=== PATIENT | female | born 1965 | race Caucasian/White ===

== ENCOUNTER → 2019-04-07 13:12 | Outpatient (CLI) | payer OTHER, SELFPAY ==
--- NOTE | ~2019-04-07 | XR_ITS ---
EXAMINATION: XR thoracic spine 3V DATE: 04/07/2019 13:37 INDICATION: Back pain TECHNIQUE: AP, lateral, and swimmer's views of the thoracic spine are obtained. COMPARISON: None. FINDINGS: Bone alignment is normal. There is no fracture. Mild loss of intervertebral disc space heig ht is seen in the midthoracic spine. Lower thoracic dextrocurvature is noted. Small degenerative oste ophytes project from the anterior endplates of multiple vertebral bodies. Calcified subcarinal lymph nodes are consistent with old granulomatous disease. Of note, there is mild to moderate cervical spon dylosis. IMPRESSION: 1. Mild thoracic spondylosis without acute findings. 2. Incidental note of mild to moderate cervical spondylosis. Reviewed, dictated and finalized at location A. ADMINISTRATOR
--- NOTE | ~2019-04-07 | XR_ITS ---
EXAMINATION: XR chest 2V DATE: 04/07/2019 13:37 INDICATION: Dyspnea. TECHNIQUE: Frontal and lateral views of the chest were obtained. COMPARISON: None. FINDINGS: Calcified pulmonary nodules and calcified hilar lymph nodes are consistent with old granulo matous disease. No pleural effusion or pneumothorax. The heart size is normal. IMPRESSION: 1. No acute cardiopulmonary disease. Reviewed, dictated and finalized at location A. NT EVALUATOR
--- NOTE | ~2019-04-07 | XR_ITS ---
EXAMINATION: XR lumbar spine 2-3V DATE: 04/07/2019 13:37 INDICATION: Low back pain TECHNIQUE: Anteroposterior and lateral views of the lumbar spine, and cone-down lateral view of the l umbosacral junction were obtained. COMPARISON: None. FINDINGS: There is no fracture. There are 2 mm of anterolisthesis of L4 on L5 with associated mild lo ss of intervertebral disc space height. Mild loss of intervertebral disc space height is also noted a t L1-2 and L2-3.. Small degenerative osteophytes project from the anterior endplates of multiple vert ebral bodies. The bowel gas pattern is normal. Surgical clips in the right upper quadrant are likely from prior cholecystectomy. IMPRESSION: 1. Mild lumbar spondylosis without acute findings. Reviewed, dictated and finalized at location A. CHEF KITCHEN MANAGER
== END ==
PROVIDERS: PCP Nurse Practitioner Family; Visit Provider Family Medicine
DX: R06.00 Dyspnea, unspecified (principal); M47.894 Other spondylosis, thoracic region; M47.896 Other spondylosis, lumbar region
CPT/HCPCS: 71046; 72072; 72100

== ENCOUNTER 2019-04-16 14:51 | Outpatient (RCR) | payer OTHER, SELFPAY ==
--- NOTE | 2019-04-16 16:34 | PTOPEVAL ---
Thank you for referring this patient to [facility] [place]. Please review, sign, date and return this plan of care LEONCIO. I agree with and certify that the following plan of care is medically necessary. Referring Physician Date Admitting Provider: Attending Provider: Kentrell Santiago, [employer] Referring Provider: *PT Outpatient Evaluation Start: 04/16/19 14:57 Freq: Status: Active Protocol: Document 04/16/19 14:57 LUIS M (Rec: 04/16/19 16:14 LUIS M [id number]) Therapy Assessment Status Assessment Status Assessment Status Evaluation Evaluation Information Problem Diagnosis lumbar and thoracic pain Onset 02/26/19 Subjective Information Pt. reports that she started Query Text:As Reported By Patient/ noting twitching in her legs Family around Feb. She reports that she had undergone lab work without any signficant findings. she reports that she then developed pain across the low back. She states that she was doing massage and chiropractic and began to note some improvement. Shortly after developed coldness and abnormal sensation in her hands and feet. She also notes described twitching in the calf mm. Pt. is uncertain of her goal with therapy at this time. Prior Level of Function Activity Level (Last 3 Months) Occupation secretarial work Hand Dominance Right Activity of Daily Living Ability Independent Indoor/Home Mobility Independent Community Mobility Independent Stairs Ability Independent Functional Cognition (Planning, Shopping Independent , Taking Medications) Cooking Yes Cleaning Yes Laundry Yes Shopping Yes Driving Yes Pain Assessment Pain Scale Pain Scale Used Numeric (1 - 10) Self Report Pain Assessment Bilateral Back Reported Pain Level 0 Current Pain Intensity 0 Lowest Pain Intensity 0 Greatest Pain Intensity 3 Pain Aggravating Factors Prolonged Position,Sitting Pain Behaviors None Pain Relief Interventions Used By Walking Patient Pain Score Pain Score
--- NOTE | 2019-05-01 17:07 | PCPTNOTE ---
05/01/19 - patient called and cancelled therapy visit this date. JTF
--- NOTE | 2019-05-27 17:32 | PCPTNOTE ---
05/27/19- pt not seen since 04/24. pt will be discharged on this date per evaluating therapist.-BART
== END 2019-04-24 08:46 | disposition home or self-care (01) ==
LOC: CHSPT 14:51
PROVIDERS: PCP Nurse Practitioner Family; Visit Provider Nurse Practitioner Family
DX: M54.5 Low back pain (principal); M54.6 Pain in thoracic spine
CPT/HCPCS: 97110; 97161

== ENCOUNTER 2019-07-14 11:35 | Outpatient (CLI) | payer OTHER, SELFPAY ==
[2019-07-14 12:03] LABS: Alanine Aminotransferase 315 U/L (14-59); Albumin Level 4.2 g/dL (3.4-5.0); Alkaline Phosphatase 111 U/L (46-116); Amylase 111 U/L (25-115); Anion Gap 16.3 mmol/L (7-16); Aspartate Amino Transferase 116 U/L (15-37); Bilirubin,Total 0.7 mg/dL (0.00-1.00); Blood Urea Nitrogen 10 mg/dL (7-18); Calcium 9.2 mg/dL (8.5-10.1); Carbon Dioxide 27 mmol/L (21-32); Chloride 101 mmol/L (98-108); Estimated Glomerular Filt Rate > 60; Glucose 97 mg/dL (70-99); Lipase 218 U/L (73-393); Osmolality Calculated 289 mOsm/kg (285-295); Potassium 4.3 mmol/L (3.5-5.1); Sodium 140 mmol/L (136-145); Total Protein 8.1 g/dL (6.4-8.2)
== END 2019-07-14 11:36 | disposition home or self-care (01) ==
LOC: CHSLAB 11:39
PROVIDERS: PCP Family Medicine; Visit Provider Family Medicine
DX: R10.11 Right upper quadrant pain (principal)
CPT/HCPCS: 36415; 80053; 82150; 83690

== ENCOUNTER 2019-07-15 08:17 | Outpatient (CLI) | payer OTHER, SELFPAY ==
--- NOTE | ~2019-07-15 | US_ITS ---
US right upper quadrant DATE: 07/15/2019 08:45 INDICATION: Right upper quadrant abdominal pain. Elevated liver enzymes. TECHNIQUE: Real-time imaging of liver, pancreas, gallbladder areas COMPARISON: None FINDINGS: No hepatic or pancreatic space-occupying mass lesion is evident. There is normal hepatic po rtal venous flow direction. There are multiple shadowing filling defects of the gallbladder consistent with cholelithiasis. The g allbladder wall is thickened, measuring between 3 and 4 mm width. No abnormal pericholecystic fluid c ollection is evident. The sonographic Rios sign is positive. Given the thickening of the gallbladde r wall and positive sonographic Rios's sign. Acute cholecystitis should be considered. If further e valuation is desired, consider radionuclide hepatobiliary scan. The common bile duct measures 3.4 mm diameter, within normal range. IMPRESSION: Cholelithiasis, gallbladder wall thickening and positive sonographic Rios's sign; consi lilia acute cholecystitis. Reviewed, dictated and finalized at Location A. Reviewed, dictated and finalized at location A. IMPRESSION: Cholelithiasis, gallbladder wall thickening and positive sonographi c Rios's sign; consider acute cholecystitis.
== END 2019-07-15 08:18 | disposition home or self-care (01) ==
PROVIDERS: PCP Nurse Practitioner Family; Visit Provider Nurse Practitioner Family
DX: K80.20 Calculus of gallbladder without cholecystitis without obstruction (principal)
CPT/HCPCS: 76705

== ENCOUNTER 2021-01-17 09:16 | Outpatient (CLI) | payer BC, SELFPAY ==
[2021-01-17 10:45] LABS: SARS-CoV-2 RNA PCR Positive (Negative)
== END 2021-01-17 09:17 | disposition home or self-care (01) ==
LOC: CHSLAB 09:21
PROVIDERS: PCP Family Medicine; Visit Provider Family Medicine
DX: U07.1 COVID-19 (principal)
CPT/HCPCS: C9803; U0003; U0005

== ENCOUNTER 2021-01-18 10:31 | Outpatient (CLI) | payer BC, SELFPAY ==
[2021-01-18] MEDS: diphenhydrAMINE HCl CAP 25 MG CAPSULE PO (11:00)
[2021-01-18] MEDS: ACETAMINOPHEN 325 MG TABLET 650 MG PO (11:00)
--- NOTE | 2021-01-18 11:10 | PC.NURSE ---
Pt to room 212 amb. A&Ox3. Oriented to room. Has no complaints. Read and signed [facility] consent. Plan of care explained. Call singletary in reach. Reminded to call with needs.
[2021-01-18 11:33] VITALS: BP 125/68; PULSE 75; RESP 20; O2SAT 98
[2021-01-18] MEDS: FAMOTIDINE 20 MG TABLET PO (11:35)
--- NOTE | 2021-01-18 12:40 | PC.NURSE ---
Pt has no complaints or concerns. Discharged to home amb per self.
== END 2021-01-18 10:32 | disposition home or self-care (01) ==
PROVIDERS: PCP Family Medicine; Visit Provider Family Medicine
DX: U07.1 COVID-19 (principal); I10 Essential (primary) hypertension
CPT/HCPCS: A9270; J7050; M0243; Q0244

== ENCOUNTER 2021-06-05 10:03 | Emergency (ER) | payer BC, SELFPAY ==
--- NOTE | ~2021-06-05 | CT_ITS ---
EXAMINATION: CT abdomen pelvis w con EXAM DATE: 06/05/2021 12:19 INDICATION: Diarrhea, pain, transaminitis . TECHNIQUE: Spiral CT of the abdomen and pelvis was performed following intravenous injection of 100 m L Omnipaque 350. Axial, coronal and sagittal images of the abdomen and pelvis were reviewed. The do se-length product (DLP) for this examination was 191.33 mGy-cm. The exposure was tailored according to patient size (auto mA exposure control), and iterative reconstruction (ASIR) was used as additiona l dose reduction technique. There is no prior study for comparison. FINDINGS: Mild nonspecific retroperitoneal, mesenteric fat stranding with some scattered borderline s ized lymph nodes, one of the larger nodes measuring 9 x 11 mm probably reactive. Could be chronic mes enteric panniculitis but mild pancreatitis not excludable. The liver, spleen, adrenal glands are unr emarkable. There are cholecystectomy clips. Minimal intrahepatic biliary duct dilation likely from p ostcholecystectomy status.Portal and splenic veins are patent. Kidneys enhance symmetrically. There is no hydronephrosis. The uterus is unremarkable. The bladder is unremarkable. There are no findings to suggest appendicitis. The stomach and small bowel are unremarkable. There is colonic fluid, correlate for diarrhea. No free intraperitoneal gas. The heart is normal in siz e. There are no pericardial or pleural effusions. The lung bases are unremarkable. There are no os teoblastic or osteolytic lesions identified. IMPRESSION: 1. Colonic fluid, correlate for gastroenteritis or diarrhea. 2. Mild nonspecific retroperitoneal, mesenteric fat stranding and some borderline sized mesenteric l ymph nodes. Consider chronic mesenteric panniculitis or possibly mild uncomplicated acute pancreatiti s. Reviewed, dictated and finalized at location A. IMPRESSION: 1. Colonic fluid, correlate for gastroenteritis or diarrhea. 2. Mild nonspecific retroperitoneal, mesenteric fat stranding and some borderl ine sized mesenteric lymph nodes. Consider chronic mesenteric panniculitis or p ossibly mild uncomplicated acute pancreatitis.
[2021-06-05 10:09] VITALS: BP 143/63; PULSE 97; RESP 18; TEMP 36.3; O2SAT 100
[2021-06-05 10:41] LABS: Basophils Percent Auto 0.3 % (0.2-1.2); Eosinophils Absolute Auto 0.7 K/mm3 (0-0.3); Hematocrit 43.8 % (37.0-47.0); Immature Granulocyte Absolute 0.03 K/mm3 (0.00-0.031); Immature Granulocyte Percent A 0.5 % (0-0.5); Lymphocytes Absolute Auto 0.95 K/mm3 (0.9-3.2); Lymphocytes Percent Auto 14.5 % (18.3-44.2); Mean Corpuscular Hemoglobin 28.4 pg (26-34); Mean Corpuscular Volume 88.8 fl (80-100); Mean Platelet Volume 10.8 fl (7.4-10.4); Monocytes Absolute Auto 0.4 K/mm3 (0.1-0.6); Monocytes Percent Auto 5.3 % (2.6-8.5); Neutrophils Absolute Auto 4.5 K/mm3 (1.3-6.7); Neutrophils Percent Auto 68.4 % (45.5-73.1); Platelet Count Result 258 k/mm3 (150-375); Red Blood Count 4.93 M/mm3 (4.2-5.4); Red Cell Distribution Width 12.5 % (11.5-14.5); White Blood Count 6.6 K/mm3 (4.5-10.0)
[2021-06-05 10:44] LABS: Add Urine Microscopic? NO; Appearance Urine Clear (Clear); Bilirubin Urine Negative (Negative); Blood Urine Negative (Negative); Color Urine Yellow (Yellow); Glucose Urine UA Negative (Negative); Ketones Urine Negative (Negative); Leukocyte Esterase Ur Negative LEU/UL (Negative); Nitrate Urine Negative (Negative); Protein Urine Negative (Negative); Specific Grav Ur 1.012 (1.001-1.035); Urobilinogen Urine Negative mg/dL (<2.0)
[2021-06-05 10:50] LABS: Alanine Aminotransferase 36 U/L (4-35); Albumin Level 4.4 g/dL (3.5-5.1); Alkaline Phosphatase 72 U/L (38-126); Anion Gap 7 mmol/L (8-16); Aspartate Amino Transferase 50 U/L (14-36); Bilirubin,Total 0.6 mg/dL (0.2-1.3); Blood Urea Nitrogen 10 mg/dL (7-17); Calcium 8.8 mg/dL (8.4-10.2); Carbon Dioxide 29 mmol/L (22-30); Chloride 106 mmol/L (98-107); Estimated CRCL calculation 56 ml/min; Estimated Glomerular Filt Rate > 60; Glucose 99 mg/dL (65-110); Lipase 103 U/L (23-300); Potassium 3.4 mmol/L (3.4-5.0); Sodium 142 mmol/L (137-145)
--- NOTE | 2021-06-05 10:52 | ED.NAVMDI ---
HPI - Nausea/Vomiting/Diarrhea General Chief complaint: Nausea/Vomiting/Diarrhea <MARIANO Galvez Last Filed: 06/05/21 13:08> Stated complaint: Diarrhea, PCP sent patient <MARIANO Galvez Last Filed: 06/05/21 13:08> Time Seen by Provider: 06/05/21 10:31 <MARIANO Galvez Last Filed: 06/05/21 13:08> Source: patient <MARIANO Galvez Last Filed: 06/05/21 13:08> Mode of arrival: ambulatory <MARIANO Galvez Last Filed: 06/05/21 13:08> Limitations: no limitations <MARIANO Galvez Last Filed: 06/05/21 13:08> History of Present Illness HPI Narrative: Patient is a 55-year-old female who presents the ED with report of diarrhea. Patient reports having diarrhea for the past 12 days. She states she has multiple episodes of diarrhea a day. Stool began to be a little more formed throughout the week, but became watery again yesterday. No blood. Patient reports having abdominal cramping associated with the diarrhea but no other significant abdominal pain. No nausea no vomiting. No fever, chills, urinary symptoms, back pain, weakness. Patient reports she was seen at [facility] earlier this week and was given IV fluids. She was also given Flagyl at that time and took this for 2 days but then stopped taking it. She had tried Imodium for 2 days last week without much relief and stopped taking this. She has been following a brat diet this week. She also mentions her primary care doctor has recently been titrating her up on sertraline, however she thought the diarrhea could be related to this and she has since been titrating her back down. <MARIANO Galvez Last Filed: 06/05/21 13:08> Related Data Allergies/Adverse reactions: Allergies Allergy/AdvReac Type Severity Reaction Status Date / Time prednisone Allergy Intermediate Unknown Verified 06/05/21 10:31 Bactroban Nasal Allergy Intermediate Unknown Uncoded 06/05/21 10:31 <MARIANO Galvez Last Filed: 06/05/21 13:08> Review of Systems Review of Systems: CONSTITUTIONAL: Denies fever, chills. CARDIOVASCULAR: Denies chest pain. RESPIRATORY: Denies dyspnea. GASTROINTESTINAL: Reports diarrhea and associated abdominal cramping. Denies abdominal pain, nausea, vomiting, or rectal bleeding. GENITOURINARY: Denies dysuria or hematuria. MUSCULOSKELETAL: Denies back pain. NEUROLOGIC: Denies weakness. <Sita Funez PA-C - Last Filed: 06/05/21 13:08> All systems reviewed & are unremarkable except as noted in HPI and below <Sita Funez PA-C - Last Filed: 06/05/21 13:08> PMFSH Past Medical History Medical History: Medical History (Updated 06/05/21 @ 13:05 by Sita Funez PA-C) Anxiety Hypertension Latex allergy Radiculopathy of leg Ringing in ears Seasonal allergies Tarsal tunnel syndrome of both lower extremities <Sita Funez PA-C - Last Filed: 06/05/21 13:08> Surgical History Surgical History: Surgical History (Updated 06/05/21 @ 13:05 by Sita Funez PA-C) H/O section History of cholecystectomy <Sita Funez PA-C - Last Filed: 06/05/21 13:08> Family History Family History: Family History Father Hypertension Mother Family history of malignant neoplasm <Sita Funez PA-C - Last Filed: 06/05/21 13:08> Social History Social History: Social History Smoking status: Never smoker Alcohol intake: current Alcohol use details: Social use only Substance use: never <Sita Funez PA-C - Last Filed: 06/05/21 13:08> Exam Narrative: GENERAL: Well appearing, well-nourished, non-toxic, in no acute distress. HEAD: Normocephalic, atraumatic. NECK: Supple. No adenopathy, no masses. RESPIRATORY: Airway patent, respirations nonlabored. Clear to auscultation bilaterally, no rales, rhonchi, wheezing. CARDIOVASCULAR:
[2021-06-05] MEDS: SODIUM CHLORIDE 0.9% IV 1,000 ML 999 ML IV CONT (11:07)
[2021-06-05 11:29] VITALS: BP 130/71; BP 135/72; PULSE 80; PULSE 81
[2021-06-05 11:31] VITALS: BP 129/69; PULSE 92
[2021-06-05 13:01] VITALS: BP 136/69; PULSE 85; RESP 20; O2SAT 99
== END 2021-06-05 13:03 | disposition home or self-care (01) ==
PROVIDERS: Emergency Provider Emergency Medicine
DX: K52.9 Noninfective gastroenteritis and colitis, unspecified (principal); I10 Essential (primary) hypertension; F41.9 Anxiety disorder, unspecified; R93.5 Abnormal findings on diagnostic imaging of other abdominal regions, including retroperitoneum
CPT/HCPCS: 36415; 74177; 80053; 81003; 83690; 85025; 87045; 87427; 96360; 96361; 99284; J7030; Q9967

== ENCOUNTER 2022-09-01 07:43 | Outpatient (CLI) | payer BC, SELFPAY ==
--- NOTE | ~2022-09-01 | MM_ITS ---
EXAMINATION: MM screening zander BI w elmo HISTORY: Screening mammogram, family history of breast cancer in her mother. TECHNIQUE: Craniocaudal and mediolateral oblique 3-D tomosynthesis images were obtained and synthetic 2-D images were generated. CAD analysis was submitted and interpreted. COMPARISON: No prior mammogram is available for comparison at this institution. BREAST PARENCHYMAL COMPOSITION: The breasts are heterogeneously dense, which may obscure small masses . FINDINGS: RIGHT BREAST: An asymmetry is present in the posterior third of the upper outer quadrant of the breas t 7.5 cm from the nipple on the mediolateral oblique view. LEFT BREAST: No suspicious mass, calcification, or architectural distortion are identified to suggest malignancy. IMPRESSION: 1. Right breast asymmetry. 2. Additional mammographic views and possible breast ultrasound are recommended. BI-RADS Category 0: Incomplete: Needs additional imaging evaluation. Reviewed, dictated and finalized at location A. IMPRESSION: 1. Right breast asymmetry. 2. Additional mammographic views and possible breast ultrasound are recommended . BI-RADS Category 0: Incomplete: Needs additional imaging evaluation.
== END 2022-09-01 07:44 | disposition home or self-care (01) ==
LOC: CHSIMG 07:45
PROVIDERS: PCP Internal Medicine; Visit Provider Family Medicine
DX: Z12.31 Encounter for screening mammogram for malignant neoplasm of breast (principal); R92.8 Other abnormal and inconclusive findings on diagnostic imaging of breast
CPT/HCPCS: 77063; 77067

== ENCOUNTER 2022-09-07 09:38 | Outpatient (CLI) | payer BC, SELFPAY ==
--- NOTE | ~2022-09-07 | MMUS_ITS ---
EXAMINATION: MM diagnostic zander RT w elmo, US breast RT complete HISTORY: Right breast mammographic asymmetry reported on 09/01/2022 bilateral screening mammogram TECHNIQUE: Additional 3-D tomosynthesis images of the right breast were performed and synthetic 2-D i mages were generated. CAD analysis was submitted and interpreted. High resolution complete right delmis st ultrasound was performed. COMPARISON: 09/01/2022 bilateral screening mammogram FINDINGS: MAMMOGRAPHIC FINDINGS: No suspicious mass, architectural distortion, malignant calcification, skin thickening or retraction is detected. ULTRASOUND: 9:00 4 cm from nipple: 3 mm cyst 8:00 2 cm from nipple: 2.2 x 4.5 mm circumscribed hypoechoic solid mass, without internal vascularit y or posterior shadowing, benign in appearance. Dense fibroglandular stroma is noted, particularly at 10:00, with interspersed hypoechoic solid and h yperechoic fatty tissue. IMPRESSION: 1. Benign findings 2. Routine annual mammographic screening is recommended BI-RADS Category 2: Benign finding(s). Reviewed, dictated and finalized at location A. IMPRESSION: 1. Benign findings 2. Routine annual mammographic screening is recommended BI-RADS Category 2: Benign finding(s).
== END 2022-09-07 09:39 | disposition home or self-care (01) ==
LOC: CHSIMG 09:40
PROVIDERS: PCP Internal Medicine; Visit Provider Family Medicine
DX: R92.8 Other abnormal and inconclusive findings on diagnostic imaging of breast (principal)
CPT/HCPCS: 76641; 77061; 77065; G0279